=== PATIENT | female | born 1960 | race Two or more races ===

== ENCOUNTER 2020-03-02 13:16 | Outpatient (CLI) | payer MEDICAID ==
[~2020-03-02] VITALS: Ht 157.5 cm; Wt 96.2 kg
[2020-03-02 13:30] VITALS: BP 121/70
[2020-03-02] MEDS ORDERED: METFORMIN HCL500 M1 ORAL (15:46)
[2020-03-02] MEDS ORDERED: MIRALAX17 G2 ORAL (15:46)
[2020-03-02] MEDS ORDERED: JANUVIA100 MG ORAL (15:46)
[2020-03-02] MEDS ORDERED: LISINOPRIL2.5 MG ORAL (15:46)
[2020-03-02] MEDS ORDERED: ASPIRIN EC81 MG ORAL (15:46)
--- NOTE | 2020-03-04 10:00 | Consultation ---
DATE OF CONSULTATION: 03/02/2020 CONSULTING PHYSICIAN: Bertram Alvarado MD. CHIEF COMPLAINT: Abdominal pain. HISTORY OF PRESENT ILLNESS: This is a 59-year-old female with multiple GI complaints including abdominal pain, GERD, constipation, rectal bleeding, nausea, and bloating. Apparently, she had a workup before and had endoscopy and colonoscopy in 2019. She was not happy with the GI doctor report and she was for her symptoms. PAST MEDICAL HISTORY: 1. Fatty liver. 2. Depression. 3. Hypercholesterolemia. 4. Hypertension. 5. Diabetes. 6. GERD. 7. Hiatal hernia. 8. Obesity. 9. PAST SURGICAL HISTORY: Thyroid surgery. MEDICATIONS: Please see medication reconciliation list. FAMILY HISTORY: Father had CHF. SOCIAL HISTORY: The patient denies any tobacco, alcohol, or IV drug abuse. ALLERGIES: No known drug allergies. REVIEW OF SYSTEMS: Positive for abdominal pain, GERD, constipation, nausea, and bloating. PHYSICAL EXAMINATION: VITAL SIGNS: Temperature 97.8, blood pressure is 120/70, pulse 87, respirations 20. HEENT: Normocephalic and atraumatic. Sclerae anicteric. NECK: Supple. No evidence of obvious lymphadenopathy. CARDIOVASCULAR: Regular rate and rhythm. Plus S1,S2. LUNGS: Clear to auscultation bilaterally. ABDOMEN: Positive bowel sounds. Soft and nontender. No rebound. No guarding. No peritoneal sign. EXTREMITIES: No cyanosis. No clubbing. No edema. ASSESSMENT AND PLAN: This is a 59-year-old female with complaint of nausea, bloating, abdominal pain, constipation. The patient has been having diabetes over 10 years. Her hemoglobin A1c according to the patient is over 7. I explained to the patient that she needs to have her diabetes better controlled because this chronic nausea can be from the gastroparesis related to diabetes. Apparently, at one time, she was prescribed Reglan, but she refused to take it because of side effects, so I highly recommended her to lose weight to have a better diabetes control for that. In terms of her constipation, we will start the patient on 2 mg daily help her with constipation. It also might be able to help her with gastroparesis, so hopefully we are going to kill two birds in one stone with this medication. She was given a sample with some prescription. We will see if she responds to it. Bertram Alvarado M.D. DR: NAPOLEON JOB#: [id number] CC:
== END 2020-03-02 15:40 | disposition home or self-care (01) ==
LOC: PAN 13:16
DX: R10.9 Unspecified abdominal pain (principal); K21.9 Gastro-esophageal reflux disease without esophagitis; K59.00 Constipation, unspecified; K62.5 Hemorrhage of anus and rectum; R11.0 Nausea; R14.0 Abdominal distension (gaseous); F32.9 Major depressive disorder, single episode, unspecified; E78.00 Pure hypercholesterolemia, unspecified; I10 Essential (primary) hypertension; E11.9 Type 2 diabetes mellitus without complications